=== PATIENT | male | born 2005 | race Caucasian/White ===

== ENCOUNTER 2024-11-23 20:23 | Emergency (ER) | payer BC, SELFPAY ==
[2024-11-23] VITALS (11 sets, daily range): BP systolic 163; BP diastolic 87; PULSE 69–101; RESP 16; TEMP 36.9; O2SAT 96–100; BMI 23.9
--- NOTE | 2024-11-23 20:56 | CRLHL7_ITS ---
For Patients: As a result of the Century Cures Act, medical imaging exams and procedure reports are released immediately into your electronic medical record. You may view this report before your referring provider. If you have questions, please contact your health care provider. INDICATION: Chest pain. TECHNIQUE: Chest 2 views. COMPARISON: None. FINDINGS: Cardiovascular and mediastinum: Heart size and vasculature are normal in caliber and appearance. Lungs and pleural spaces: Lungs are clear. No sign of infiltrate or mass. No sign of pleural effusion. No pneumothorax. Bones and soft tissues: No significant findings. IMPRESSION: No acute or significant findings. Dictated by David Adame MD @ 11/23/2024 9:23:15 PM (Electronically Signed)
--- OUTSIDE RECORDS SUMMARY | 2024-11-23 21:11 | XMS_ITS | Clinical Summary ---
Author Organization [employer] Address [address] [facility], [address] [place] [address] Care Team Providers Care Director Of Human Resources Name Role Phone GUILLERMO SUN Attending Clinician Janet vailable SELF-REFERRED Admitting Clinician Unavailable Payers Payer Name Policy Type Policy Number Effective Date Expira tion Date [facility] EPO [id number] 2021 00:00:00 Problems This patient has no known problems. Allergies, Adverse Reactions, Alerts This patient has no known allergies or adverse reactions. Immunizations Ordered Immunization Name Filled Immunization Name Date Status Comments Refusal Reason SARS-COV-2 (COVID-19) vaccine, mRNA, spike protein, LNP, bivalent, preservative free, 30 mcg/0.3 mL dose, ledy-sucrose formulation SARS-COV-2 (COVID-19) vaccine, mRNA, spike protein, LNP, bivalent, preservative free, 30 mcg/0.3 mL dose, ledy-sucrose formulation 2022-12-25 00:00:00 Romanian Encephalitis vaccine for intramuscular administration syringe [IXIARO] Romanian Encephalitis vaccine for intramuscular administration syringe [IXIARO] 2022-07-19 00:00:00 Human Rabies vaccine from human diploid cell culture vial [Imovax] Human Rabies vaccine from human diploid cell culture vial [Imovax] 2022-07-12 00:00:00 meningococcal B vaccine, recombinant, OMV, adjuvanted meningococcal B vaccine, recombinant, OMV, adjuvanted 2022-07-12 00:00:00 Influenza, injectable, quadrivalent, preservative free 0.5 ml syringe [FLUZONE] Influenza, injectable, quadrivalent, preservative free 0.5 ml syringe [FLUZONE] 2021-11-28 00:00:00 Influenza, injectable, quadrivalent, preservative free 0.5 ml syringe [FLUZONE] Influenza, injectable, quadrivalent, preservative free 0.5 ml syringe [FLUZONE] 2021-11-28 00:00:00 meningococcal B vaccine, recombinant, OMV, adjuvanted meningococcal B vaccine, recombinant, OMV, adjuvanted 2021-11-28 00:00:00 tetanus toxoid, reduced diphtheria toxoid, and acellular pertussis vaccine, adsorbed vial [ADACEL] tetanus toxoid, reduced diphtheria toxoid, and acellular pertussis vaccine, adsorbed vial [ADACEL] 2021-11-28 00:00:00 SARS-COV-2 (COVID-19) vaccine, mRNA, spike protein, LNP, preservative free, 30 mcg/0.3mL dose SARS-COV-2 (COVID-19) vaccine, mRNA, spike protein, LNP, preservative free, 30 mcg/0.3mL dose 2021-10-25 00:00:00 COVID-19, mRNA, LNP-S, PF, 30 mcg/0.3 mL dose COVID-19, mRNA, LNP-S, PF, 30 mcg/0.3 mL dose 2021-10-25 00:00:00 COVID-19, mRNA, LNP-S, PF, 30 mcg/0.3 mL dose COVID-19, mRNA, LNP-S, PF, 30 mcg/0.3 mL dose 2021-02-08 00:00:00 SARS-COV-2 (COVID-19) vaccine, mRNA, spike protein, LNP, preservative free, 30 mcg/0.3mL dose SARS-COV-2 (COVID-19) vaccine, mRNA, spike protein, LNP, preservative free, 30 mcg/0.3mL dose 2021-02-08 00:00:00 Influenza, injectable, Madin Hayward Canine Kidney, preservative free Influenza, injectable, Madin Hayward Canine Kidney, preservative free 2020-08-15 00:00:00 Influenza, injectable, Madin Hayward Canine Kidney, preservative free Influenza, injectable, Madin Hayward Canine Kidney, preservative free 2020-08-15 00:00:00 meningococcal oligosaccharide (groups A, C, Y and W-135) diphtheria toxoid conjugate vaccine (MCV4O) vial [Menveo] meningococcal oligosaccharide (groups A, C, Y and W-135) diphtheria toxoid conjugate vaccine (MCV4O) vial [Menveo] 2019-12-15 00:00:00 Influenza, injectable, Madin Rena Canine Kidney, preservative free Influenza, injectable, Madin Hayward Canine Kidney, preservative free 2018-09-17 00:00:00 Influenza, injectable, Madin Hayward Canine Kidney, preservative free Influenza, injectable, Madin Rena Canine Kidney, preservative free 2018-09-17 00:00:00 Human Papillomavirus 9-valent vaccine vial [GARDASIL 9] Human Papillomavirus 9-valent vaccine vial [GARDASIL 9] 2017-11-19 00:00:00 Influenza, injectable, quadrivalent, preservative free 0.5 ml syringe [FLUZONE] Influenza, injectable, quadrivalent, preservative free 0.5 ml syringe [FLUZONE] 2017-11-19 00:00:00 Influenza, injectable, quadrivalent, preservative free 0.5 ml syringe [FLUZONE] Influenza, injectable, quadrivalent, preservative free 0.5 ml syringe [FLUZONE] 2017-11-19 00:00:00 influenza virus vaccine, unspecified formulation influenza virus vaccine, unspecified formulation 2016-08-23 00:00:00 human papilloma virus vaccine, quadrivalent vial [GARDASIL] human papilloma virus vaccine, quadrivalent vial [GARDASIL] 2015-11-29 00:00:00 tetanus and diphtheria toxoids, adsorbed, for adult use tetanus and diphtheria toxoids, adsorbed, for adult use 2014-11-20 00:00:00 influenza virus vaccine, unspecified formulation influenza virus vaccine, unspecified formulation 2012-09-23 00:00:00 varicella virus vaccine varicella virus vaccine 2010-12-30 00:00:00 hepatitis A vaccine, adult dosage syringe [HAVRIX] hepatitis A vaccine, adult dosage syringe [HAVRIX] 2010-12-30 00:00:00 hepatitis B vaccine, pediatric or pediatric/adolescent dosage hepatitis B vaccine, pediatric or pediatric/adolescent dosage 2010-03-14 00:00:00 hepatitis A vaccine, adult dosage syringe [HAVRIX] hepatitis A vaccine, adult dosage syringe [HAVRIX] 2010-03-14 00:00:00 Influenza, seasonal, injectable vial [FLUVIRIN] Influenza, seasonal, injectable vial [FLUVIRIN] 2009-11-24 00:00:00 Influenza, seasonal, injectable vial [FLUVIRIN] Influenza, seasonal, injectable vial [FLUVIRIN] 2009-09-10 00:00:00 measles, mumps and rubella virus vaccine measles, mumps and rubella virus vaccine 2009-03-11 00:00:00 diphtheria, tetanus toxoids and acellular pertussis vaccine vial [INFANRIX] diphtheria, tetanus toxoids and acellular pertussis vaccine vial [INFANRIX] 2009-03-11 00:00:00 poliovirus vaccine, inactivated poliovirus vaccine, inactivated 2009-03-11 00:00:00 hepatitis B vaccine, pediatric or pediatric/adolescent dosage hepatitis B vaccine, pediatric or pediatric/adolescent dosage 2007-11-05 00:00:00 influenza virus vaccine, unspecified formulation influenza virus vaccine, unspecified formulation 2007-08-14 00:00:00 hepatitis B vaccine, pediatric or pediatric/adolescent dosage hepatitis B vaccine, pediatric or pediatric/adolescent dosage 2006-10-24 00:00:00 hepatitis B vaccine, pediatric or pediatric/adolescent dosage hepatitis B vaccine, pediatric or pediatric/adolescent dosage 2006-10-05 00:00:00 Haemophilus influenzae type b vaccine, conjugate unspecified formulation Haemophilus influenzae type b vaccine, conjugate unspecified formulation 2004-12-30 00:00:00 diphtheria, tetanus toxoids and acellular pertussis vaccine vial [INFANRIX] diphtheria, tetanus toxoids and acellular pertussis vaccine vial [INFANRIX] 2004-12-30 00:00:00 varicella virus vaccine varicella virus vaccine 2004-12-30 00:00:00 hepatitis A vaccine, pediatric/adolescent dosage, 2 dose schedule vial [VAQTA] hepatitis A vaccine, pediatric/adolescent dosage, 2 dose schedule vial [VAQTA] 2004-12-30 00:00:00 measles, mumps and rubella virus vaccine measles, mumps and rubella virus vaccine 2004-12-30 00:00:00 pneumococcal conjugate vaccine, 7 valent pneumococcal conjugate vaccine, 7 valent 2004-12-30 00:00:00 pneumococcal conjugate vaccine, 7 valent pneumococcal conjugate vaccine, 7 valent 2004-11-05 00:00:00 diphtheria, tetanus toxoids and acellular pertussis vaccine vial [INFANRIX] diphtheria, tetanus toxoids and acellular pertussis vaccine vial [INFANRIX] 2004-06-02 00:00:00 Haemophilus influenzae type b vaccine, conjugate unspecified formulation Haemophilus influenzae type b vaccine, conjugate unspecified formulation 2004-06-02 00:00:00 poliovirus vaccine, inactivated poliovirus vaccine, inactivated 2004-06-02 00:00:00 pneumococcal conjugate vaccine, 7 valent pneumococcal conjugate vaccine, 7 valent 2004-05-05 00:00:00 pneumococcal conjugate vaccine, 7 valent pneumococcal conjugate vaccine, 7 valent 2004-02-04 00:00:00 Encounters Start Date/Time End Date/Time Encounter Type Admission Type Attending [facility] Facility Care Department Encounter ID 2021-05-03 11:18:26 2021-05-03 12:08:03 Outpatient GUILLERMO SUN [facility] None [id number] Assessments Condition Name Status Diagnosis Date Treating Cl inician Other abnormal auditory perc eptions, bilateral Active
--- NOTE | 2024-11-23 21:14 | ED_ITS ---
HPI - Chest Pain General Date Seen: 11/23/24 Chief Complaint: Arrhythmia/Palpitations Stated Complaint: Chest pains, hard time breathing Time Seen by Provider: 11/23/24 20:26 Source: patient Mode of arrival: ambulatory Limitations: no limitations History of Present Illness HPI narrative: Patient is a 19-year-old gentleman who presents here from [facility] with a history of left-sided chest pain, this all started when he underwent COVID and flu vaccine on Sunday immediately post vaccine he noted that his heart was racing, felt his blood pressure up, felt like he might pass out this feeling went away over approximately 30 minutes, he had some low level left-sided chest discomfort since. The pain is a little bit worse with lying back in better when he sits up. He has noted on off but has been taking 400 mg of ibuprofen twice daily on per recommendation of a friend's father who is a doctor. Today well eating dinner, he noted he had resumption of a feeling that he might pass out well eating, says a feeling like his blood pressure and heart rate were up but he never did take these. And feeling slightly flushed that feeling is gone away but he still has the left-sided feeling of tenderness over mid part of his chest, worse when he presses down over this area, and maybe a little worse when he takes a deep breath in and out. No history of previous heart problems no h istory of previous problems with the the COVID or the influenza vaccine. No history of DVTs or pulmonary emboli. His father although has a history of pulmonary emboli and does take anticoagulants 4, he does not know the diagnosis her reason for this. Grandfather did have heart disease but he was very elderly. He is on no medications chronically no known allergies no history of hospitalizations, works of 4 times a week is otherwise been feeling okay even this week. Denies a fevers chills or sweats, no cough, no pleuritic pain associated with this. No history of nausea vomiting abdominal pain leg swelling, or rashes. Does have a history of panic attacks and anxiety but says he feels this is different. complaint: chest pain Onset (ago): hour(s) Timing of current episode: episodic Prior episodes: No Onset: after eating Pain location: substernal and left chest Pain radiation: none Severity: moderate Quality: tightness and heaviness Relieving factors: nothing and leaning forward Exacerbating factors: supine Treatment prior to arrival: other Risk Factors Coronary artery disease risk factors: none Related Data Home Medications ?Medication ?Instructions ?Recorded ?Confirmed No Known Home Medications 11/23/24 11/23/24 Allergies Allergy/AdvReac Type Severity Reaction Status Date / Time No Known Drug Allergies Allergy Verified 11/23/24 20:35 Review of Systems Status of ROS Reports: 10 or more systems reviewed and unremarkable except as noted in History and below Exam Narrative Exam Narrative: On examination in stable 2 he is in no apparent distress speaking to me normally. Nontoxic vital signs are reviewed, with very slight tachycardia at 1:01 a.m. and slight increase in his blood pressure, pupils equal round reactive to light no scleral icterus redness cranial nerves 3-12 are normal GCS is 15/15. Speech is normal, oropharynx is normal neck is supple chest is clear bilaterally with no wheezing crackles noted easy respirations are noted, mildly tender along the left costochondral notably. Heart sounds no clicks murmurs or gallops, thyroid normal midline not enlarged JVP flat no carotid bruits noted. Abdomen is soft there is no guarding no organomegaly absent some Gracia sign is noted. Moves all extremities independently and well normal peripheral pulses and no edema. Or negative Homans signs. Skin reveals no petechiae rashes. Const Vital Signs, click to edit/add: Vital Signs - 24 hr 11/23/24 20:30 11/23/24 21:17 11/23/24 21:30 Temperature 98.4 F Pulse Rate 84 86 Pulse Rate [Femoral] 101 H Respiratory Rate 16 Blood Pressure [Right Upper Arm] 163/87 H Pulse Oximetry 100 96 98 Oxygen Delivery Method Room Air 11/23/24 21:45 11/23/24 22:00 11/23/24 22:15 Temperature Pulse Rate 83 80 75 Pulse Rate [Femoral] Respiratory Rate Blood Pressure [Right Upper Arm] Pulse Oximetry 96 98 97 Oxygen Delivery Method 11/23/24 22:30 11/23/24 22:45 11/23/24 23:00 Temperature Pulse Rate 74 82 69 Pulse Rate [Femoral] Respiratory Rate Blood Pressure [Right Upper Arm] Pulse Oximetry 99 98 98 Oxygen Delivery Method 11/23/24 23:18 11/23/24 23:30 Temperature Pulse Rate 77 76 Pulse Rate [Femoral] Respiratory Rate Blood Pressure [Right Upper Arm] Pulse Oximetry 98 98 Oxygen Delivery Method Documenting provider has reviewed patient's vital signs: yes Course Course ED Course: Discussed with the patient, D-dimer and troponins are negative, his point of care ultrasound shows overall good function of his heart, with no specific abnormalities no pericardial effusion, I did save review these with him. I suspect that the cause of his chest discomfort is more likely costochondritis with a little bit of anxiety associated with this. I think increasing his ibuprofen will go a long way to helping him. We went over warning signs such as increasing shortness of breath pain that he should come back and be seen. He was very comfortable going home at this point. His pain was improved Vital Signs Vital signs: Initial Vital Signs Temperature 98.4 F 11/23/24 20:30 Temperature Source Temporal Artery Scan 11/23/24 20:30 Pulse Rate 101 H 11/23/24 20:30 Respiratory Rate 16 11/23/24 20:30 Blood Pressure 163/87 H 11/23/24 20:30 Blood Pressure Mean 112 H 11/23/24 20:30 Blood Pressure Position Sitting 11/23/24 20:30 Pulse Oximetry 100 11/23/24 20:30 Oxygen Delivery Method Room Air 11/23/24 20:30 Vital Signs Temperature 98.4 F 11/23/24 20:30 Pulse Rate 101 H 11/23/24 20:30 Respiratory Rate 16 11/23/24 20:30 Blood Pressure 163/87 H 11/23/24 20:30 Pulse Oximetry 100 11/23/24 20:30 Oxygen Delivery Method Room Air 11/23/24 20:30 Temperature 98.4 F 11/23/24 20:30 Pulse Rate 76 11/23/24 23:30 Respiratory Rate 16 11/23/24 20:30 Blood Pressure 163/87 H 11/23/24 20:30 Pulse Oximetry 98 11/23/24 23:30 Oxygen Delivery Method Room Air 11/23/24 20:30 MDM - Chest Pain MDM Narrative Medical decision making narrative: During the evaluation of this patient I considered multiple differential diagnosis is. The life-threatening differential diagnosis include coronary disease/TN, pulmonary embolism, pneumothorax, pneumonia, and aortic dissection. Other differential diagnosis included but were not limited to pericarditis, myocarditis, chest wall pain, GERD, esophageal rupture, rib fracture contusion, pleurisy, as well as other etiologies. Differential Diagnosis Differential diagnosis: Likely fracture of rib, pneumothorax, stable angina, unstable angina pectoris, atypical chest pain, st elevation myocardial infarction, costochondritis, chest pain and biliary colic Medical Records Data Attestation: I reviewed the patient's medical records. Lab Data Attestation: I reviewed the patient's lab results. Labs: Lab Results 11/23/24 11/23/24 11/23/24 Range/Units 21:05 21:10 21:11 WBC 6.79 (4.50-11.00) K/uL RBC 5.76 (4.30-5.90) m/uL Hgb 14.6 (13.5-17.5) gm/dL Hct 44.5 (37.0-53.0) % MCV 77 L (80-100) fL MCH 25 L (26-34) pg MCHC 33 (32-36) gm/dL RDW Coeff of Yancy 12.6 (11.5-15.5) % Plt Count 239 (140-440) K/uL Neut % (Auto) 52.2 (42.0-72.0) % Lymph % (Auto) 40.6 (20-44) % Woodward % (Auto) 5.4 (0.0-11.0) % Eos % (Auto) 1.3 (0.0-7.0) % Baso % (Auto) 0.4 (0.0-3.0) % Neut # (Auto) 3.53 (1.7-7.0) K/uL Lymph # (Auto) 2.76 (0.90-2.90) K/uL Woodward # (Auto) 0.40 (0.00-0.90) K/UL Eos # (Auto) 0.09 (0.00-0.50) K/uL Baso # (Auto) 0.03 (0.00-0.30) K/uL Abs Immat Gran (auto) 0.01 (0.00-0.30) K/uL Imm/Tot Granulo (auto) 0.1 % INR 0.96 (0.91-1.10) APTT 25 (23-33) Seconds D-Dimer Quant (PE/DVT) 0.46 (0.00-0.50) ug/ml Sodium 138 (135-149) mmol/L Potassium 3.6 (3.6-5.1) mmol/L Chloride 103 (96-114) mmol/L Carbon Dioxide 27 (20-32) mmol/L Anion Gap 8 (7-15) mEq/L BUN 19 (5-24) mg/dL Creatinine 0.9 (0.5-1.5) mg/dL Estimated Creat Clear 125.61 Estimated GFR 125 ml/min Glucose 119 H (60-115) mg/dL Calcium 9.2 (8.4-10.6) mg/dL C-Reactive Protein < 0.5 L (0.5-1.0) mg/dL TSH 1.340 (0.270-4.20) uIU/mL SARS-CoV-2 (PCR) Negative SARS-CoV-2 (Negative) Influenza Type A (PCR) Negative PCR FLU A (Negative) Influenza Type B (PCR) Negative PCR FLU B (Negative) RSV (PCR) Negative PCR RSV (Negative) POC Troponin I 0.00 L (0.01-0.04) ng/ml 11/23/24 Range/Units 23:05 WBC (4.50-11.00) K/uL RBC (4.30-5.90) m/uL Hgb (13.5-17.5) gm/dL Hct (37.0-53.0) % MCV (80-100) fL MCH (26-34) pg MCHC (32-36) gm/dL RDW Coeff of Yancy (11.5-15.5) % Plt Count (140-440) K/uL Neut % (Auto) (42.0-72.0) % Lymph % (Auto) (20-44) % Woodward % (Auto) (0.0-11.0) % Eos % (Auto) (0.0-7.0) % Baso % (Auto) (0.0-3.0) % Neut # (Auto) (1.7-7.0) K/uL Lymph # (Auto) (0.90-2.90) K/uL Woodward # (Auto) (0.00-0.90) K/UL Eos # (Auto) (0.00-0.50) K/uL Baso # (Auto) (0.00-0.30) K/uL Abs Immat Gran (auto) (0.00-0.30) K/uL Imm/Tot Granulo (auto) % INR (0.91-1.10) APTT (23-33) Seconds D-Dimer Quant (PE/DVT) (0.00-0.50) ug/ml Sodium (135-149) mmol/L Potassium (3.6-5.1) mmol/L Chloride (96-114) mmol/L Carbon Dioxide (20-32) mmol/L Anion Gap (7-15) mEq/L BUN (5-24) mg/dL Creatinine (0.5-1.5) mg/dL Estimated Creat Clear Estimated GFR ml/min Glucose (60-115) mg/dL Calcium (8.4-10.6) mg/dL C-Reactive Protein (0.5-1.0) mg/dL TSH (0.270-4.20) uIU/mL SARS-CoV-2 (PCR) (Negative) Influenza Type A (PCR) (Negative) Influenza Type B (PCR) (Negative) RSV (PCR) (Negative) POC Troponin I 0.00 L (0.01-0.04) ng/ml Imaging Data Chest x-ray: Attestation: I have reviewed the pertinent imaging results. My impression: X-ray negative per my review Radiologist's impression: [place] [id number] Diagnostic Imaging Report Patient: Rafy Pinto MR#: [id number] : 2005 Acct:[id number] Loc: ED Service Date: 11/23/[address]: Ordering Physician: Bruce Jefferson M.D. Date of Service: 11/23/24 Procedure(s): XR chest 2V Accession Number(s): [id number] cc: Provider,Not a Local; Bruce Jefferson M.D.~ For Patients: As a result of the 21st Century Cures Act, medical imaging exams and procedure reports are released immediately into your electronic medical record. You may view this report before your referring provider. If you have questions, please contact your health care provider. INDICATION: Chest pain. TECHNIQUE: Chest 2 views. COMPARISON: None. FINDINGS: Cardiovascular and mediastinum: Heart size and vasculature are normal in caliber and appearance. Lungs and pleural spaces: Lungs are clear. No sign of infiltrate or mass. No sign of pleural effusion. No pneumothorax. Bones and soft tissues: No significant findings. IMPRESSION: No acute or significant findings. Dictated by David Adame MD @ 11/23/2024 9:23:15 PM ECG Data Attestation: I personally reviewed and interpreted this ECG as follows: ECG interpretation date: 11/23/24 Prior ECG tracings: not available for review Interpretation: EKG shows normal sinus rhythm , ventricular rate is 100, no acute ST wave changes, QRS QT and QTC are all normal. Assessment: Normal EKG Discharge Plan Discharge Clinical Impression: Acute costochondritis Patient Disposition: Home, Self-Care Condition: Stable Instructions: Costochondritis (DC) Additional Instructions: No evidence of anything bad on examination, your test for blood clot, and your heart enzyme are all normal. Chest x-ray looks good in the remainder of your blood tests were normal. I do think this is what we would describe as costochondritis, or inflammation of the cartilage in your chest. Increasing your dose ibuprofen to 600 mg 3 times a day would be advantageous and likely help this. This usually goes on for the next 7-10 days improves, it should not cause you to become short of breath, passing out or other issues if these occur then you need to come back and be seen. I do recommend light activity for the next 7-10 days. Activity Level: Light activity Discharge Diet: Regular Prescriptions: No Action No Known Home Medications Follow Up/Referrals: Provider,Not a Local [Primary Care Provider] - Stand Alone Forms: Studio [facility] Info Instructions
[2024-11-23 21:24] LABS: Basophils Absolute Auto 0.03 K/uL (0.00-0.30); Basophils Percent Auto 0.4 % (0.0-3.0); Eosinophils Absolute Auto 0.09 K/uL (0.00-0.50); Eosinophils Percent Auto 1.3 % (0.0-7.0); Hematocrit 44.5 % (37.0-53.0); Hemoglobin* 14.6 gm/dL (13.5-17.5); Immature Granulocytes Abs Auto 0.01 K/uL (0.00-0.30); Immature Granulocytes Pct Auto 0.1 %; Lymphocytes Absolute Auto 2.76 K/uL (0.90-2.90); Lymphocytes Percent Auto 40.6 % (20-44); Mean Corpuscular HGB Conc 33 gm/dL (32-36); Mean Corpuscular Hemoglobin 25 pg (26-34); Mean Corpuscular Volume 77 fL (80-100); Monocytes Percent Auto 5.4 % (0.0-11.0); Neutrophils Absolute Auto 3.53 K/uL (1.7-7.0); Neutrophils Percent Auto 52.2 % (42.0-72.0); Platelet Count* 239 K/uL (140-440); RDW Coefficient of Variation % 12.6 % (11.5-15.5); Red Blood Count 5.76 m/uL (4.30-5.90); White Blood Count* 6.79 K/uL (4.50-11.00)
[2024-11-23 21:29] LABS: Slide Review Reflex No
[2024-11-23 21:34] LABS: Chloride* 103 mmol/L (96-114); Potassium* 3.6 mmol/L (3.6-5.1); Sodium* 138 mmol/L (135-149)
[2024-11-23 21:37] LABS: Creatinine* 0.9 mg/dL (0.5-1.5); Est. Creatinine Clearance* 125.61; Estimated Glomerular Filt Rate 125 ml/min; INR 0.96 (0.91-1.10); Partial Thromboplastin Time* 25 Seconds (23-33); Prothrombin Time 13.3 Seconds
[2024-11-23 21:38] LABS: Anion Gap 8 mEq/L (7-15); Blood Urea Nitrogen* 19 mg/dL (5-24); Calcium* 9.2 mg/dL (8.4-10.6); Carbon Dioxide* 27 mmol/L (20-32); Glucose* 119 mg/dL (60-115)
[2024-11-23 21:40] LABS: D Dimer Quantitative* 0.46 ug/ml (0.00-0.50)
[2024-11-23 21:44] LABS: C Reactive Protein* < 0.5 mg/dL (0.5-1.0)
[2024-11-23 21:58] LABS: PCR FLU A Negative PCR FLU A (Negative); PCR FLU B Negative PCR FLU B (Negative); PCR RSV Negative PCR RSV (Negative); SARS PCR* Negative SARS-CoV-2 (Negative)
== END 2024-11-23 23:55 | disposition home or self-care (01) ==
PROVIDERS: Emergency Provider Family Medicine
DX: M94.0 Chondrocostal junction syndrome [Tietze] (principal)
CPT/HCPCS: 36415; 71046; 80048; 84443; 84484; 85025; 85379; 85610; 85730; 86140; 87631; 93005; 93308; 94761; 99284